=== PATIENT | male | born 1935 | race Caucasian/White ===

== ENCOUNTER → 2018-01-07 | Outpatient (CLI) | payer MEDICARE ==
[~2018-01-07] MED LIST: HYDR200T72 PO; OMEP40CA3 PO
== END | disposition home or self-care (01) ==
LOC: RAD 09:41
PROVIDERS: ATTEND Internal Medicine Gastroenterology
DX: R13.14 Dysphagia, pharyngoesophageal phase (principal)
CPT/HCPCS: 74230; 92611; G8996; G8997

== ENCOUNTER 2018-08-11 04:51 | Observation (INO) | payer MEDICARE ==
[~2018-08-11] VITALS: Ht 182.9 cm; Wt 84.4 kg
[2018-08-11] MEDS ORDERED: KETOROLAC 30 MG/1 ML ONE (05:25)
[2018-08-11] MEDS ORDERED: ONDANSETRON 2MG/ML, 2ML ONE ×2 (05:25→16:53)
[2018-08-11] MEDS ORDERED: MORPHINE SULFATE 4 MG/ML, 1ML ONE ×2 (05:26→06:12)
[2018-08-11 05:28] LABS: BASOPHILS # (AUTO) 0.02 x10^3/uL (0-0.1); BASOPHILS % (AUTO) 0 % (0-1); EOSINOPHILS % (AUTO) 2 % (1-7); LYMPHOCYTES # (AUTO) 0.91 x10^3/uL (1-3.4); LYMPHOCYTES % (AUTO) 15 % (22-44); MD NO; MEAN CORPUSCULAR HEMOGLOBIN 30.4 pg (27.5-34.5); MEAN CORPUSCULAR HGB CONC 33.1 g/dL (33.2-36.2); MEAN CORPUSCULAR VOLUME 91.7 fL (81-97); MEAN PLATELET VOLUME 7.6 fL (7.4-10.4); MONOCYTES % (AUTO) 10 % (2-9); NEUTROPHILS # (AUTO) 4.34 x10^3/uL (1.8-6.8); NEUTROPHILS % (AUTO) 73 % (42-75); PLATELET COUNT 276 x10^3/uL (130-400); RED BLOOD COUNT 5.49 x10^6/uL (4.38-5.82); RED CELL DISTRIBUTION WIDTH 15.1 % (9.4-14.8)
[2018-08-11 05:30] LABS: MICROSCOPIC AUTO
[2018-08-11] MEDS ORDERED: KETOROLAC 30 MG/1 ML IVPush ONE (05:30)
[2018-08-11] MEDS ORDERED: ONDANSETRON 2MG/ML, 2ML IVPush ONE (05:30)
[2018-08-11 05:34] LABS: CULTURE INDICATED? YES
[2018-08-11] MEDS: MORPHINE SULFATE 4 MG/ML, 1ML IVPush PRN ×2 (05:35→06:16)
[2018-08-11 05:40] LABS: ALBUMIN 3.7 g/dL (3.4-5.0); ANION GAP 7 mmol/L (5-15); CALCIUM 8.7 mg/dL (8.5-10.1); CHLORIDE 109 mmol/L (98-107)
[2018-08-11 05:43] LABS: ALANINE AMINOTRANSFERASE 23 U/L (12-78); ALKALINE PHOSPHATASE 59 U/L (45-117); BILIRUBIN,TOTAL 0.9 mg/dL (0.2-1.0); CREATININE 1.26 mg/dL (0.7-1.3); TOTAL PROTEIN 6.4 g/dL (6.4-8.2)
[2018-08-11] MEDS ORDERED: CHOL400C PO (06:17)
[2018-08-11] MEDS ORDERED: B12 IM (06:17)
--- NOTE | 2018-08-11 07:13 | NUR ---
PT REPORTS THAT HIS PAIN IS "MOSTLY GONE" AND HE "FEELS JUST FINE". PT ALERT AND CALM. FELICIANO AT BEDSIDE. PT AND SAY THAT HE IS "VERY HEALTHY, PLAYS SPORTS, AND IS ACTIVE AND INDEPENDENT" VSS. ONLY HX IS KIDNEY STONES, PARTIAL PARATHYROID GLAND REMOVAL, AND COLON CA WITH BOWEL RESECTION IN 1982. PT DENIES ANY NEEDS AT THIS TIME. NO ACUTE SIGNS OF DISTRESS. SYSTOLIC BLOOD PRESSURE HAS DECREASED FROM THE 180'S TO 150'S - WILL MONITOR CLOSELY.
[2018-08-11] MEDS ORDERED: OXYcodone/APAP 5/325MG TABLET PO ONE (07:30)
[2018-08-11] MEDS ORDERED: OXYcodone/APAP 5/325MG TABLET ONE (07:43)
--- NOTE | 2018-08-11 07:49 | NUR ---
PT REPORTED THAT HIS PAIN IS COMING BACK AND SHE STATES "HE IS IN QUITE A LOT OF PAIN". PT REPORTS HIS PAIN IS AT "ABOUT A 5". PERCOCET GIVEN, WILL CLOSELY MONITOR OXYGEN SATURATION. VSS.
--- NOTE | 2018-08-11 08:30 | NUR ---
PT WAS DESATING TO APPROX 88% ON ROOM AIR, I PUT OXYGEN BACK ON PT AT 1 LITER. WILL MONITOR CLOSELY AND REMOVE OXYGEN WHEN ABLE.
--- NOTE | 2018-08-11 08:39 | NUR ---
PT OXYGEN SAT IS HOLDING IN THE MID 90'S. REPORTS THAT OX SAT HAS NOT GONE BELOW 92 SINCE THE OXYGEN WAS STARTED AT 1 LITER APPOX 15 MINUTES AGO. I TURNED DOWN THE OXYGEN, PT IS CURRENTLY ON 0.5 L. PT APPEARS CALM.
--- NOTE | 2018-08-11 09:12 | NUR ---
PT OX SAT IS STABLE IN THE MID 90'S, I REMOVED THE OXYGEN AND AM MONITORING. IS LEAVING NOW AND WILL RETURN LATER WITH PT HEARING AIDS. VSS. PT STATES, "I HAVE ABSOLUTELY NO PAIN".
--- NOTE | 2018-08-11 09:22 | NUR ---
PT INSTRUCTED NOT TO EAT OR DRINK ANYTHING. PT VERBALIZED UNDERSTANDING.
[2018-08-11] MEDS ORDERED: SODIUM CHLORIDE 0.9% 1,000 ML IV ONE (09:30)
--- NOTE | 2018-08-11 09:37 | NUR ---
TASK RN: VS UPDATED IN CHART, PATIENT SITTING IN GURNEY, WATCHING TV, NADN. AWAITING BED ASSIGNMENT.
--- NOTE | 2018-08-11 10:02 | NUR ---
TASK RN: PATIENT 88% RA, SUPPLEMENTAL O2 PLACED ON PATIENT, NOW 94% 2 L NC. A+OX4, NADN.
--- NOTE | 2018-08-11 10:20 | NUR ---
PT DENIES PAIN, NO ACUTE SIGNS OF DISTRESS.
--- NOTE | 2018-08-11 10:32 | NUR ---
MED REC NEEDS SOME ADDITIONAL INFO THAT PT CAN'T PROVIDE, WILL ASK WHEN SHE RETURNS. MD AWARE. MD AT BEDSIDE PERFORMING ASSESSMENT.
--- NOTE | 2018-08-11 11:15 | NUR ---
PT MOVED TO HOSPITAL BED. PT AND PTS UPDATED ON POC. WILL TRANSPORT PT TO HOSPITAL ROOM WHEN AVAILABLE. UNDERSTANDING VERBALIZED. IV INFUSING WITHOUT REDNESS/SWELLING. NO NEEDS EXPRESSED AT THIS TIME. CONT TO MONITOR.
[2018-08-11] MEDS ORDERED: ONDANSETRON ODT 4 MG PO PRN (12:30)
[2018-08-11] MEDS ORDERED: ONDANSETRON 2MG/ML, 2ML IVPush PRN (12:30)
[2018-08-11] MEDS ORDERED: KETOROLAC 30 MG/1 ML IV PRN (12:30)
[2018-08-11] MEDS ORDERED: CEFTRIAXONE PMX 1GM/50ML 50 ML IV SCH (12:30)
--- NOTE | 2018-08-11 13:11 | NUR ---
REPORT CALLED TO ESTEPHANIA FARLEY, POC DISCUSSED.
[2018-08-11 14:04] VITALS: BP 153/71
[2018-08-11] MEDS ORDERED: FENTANYL PF 100 MCG/2ML ONE (16:45)
[2018-08-11] MEDS ORDERED: MIDAZOLAM 1 MG/ML, 2ML ONE (16:45)
[2018-08-11] MEDS ORDERED: SUCCINYLCHOLINE 20 MG/ML, 10ML ONE (16:53)
[2018-08-11] MEDS ORDERED: GLYCOPYRROLATE 0.2MG/1ML, 5ML ONE (16:53)
[2018-08-11] MEDS ORDERED: CEFAZOLIN 1,000 MG ONE (16:53)
[2018-08-11] MEDS ORDERED: LIDOCAINE-MPF 2% ,5ML ONE (16:53)
[2018-08-11] MEDS ORDERED: PROPOFOL 10 MG/ML, 20ML ONE (16:53)
[2018-08-11] MEDS ORDERED: LABETALOL 5MG/ML, 20ML IV PRN (17:30)
[2018-08-11] MEDS ORDERED: LORazepam 2 MG/ML, 1ML IVPush PRN (17:30)
[2018-08-11] MEDS ORDERED: ONDANSETRON 2MG/ML, 2ML IV PRN (17:30)
[2018-08-11] MEDS ORDERED: HYDROmorphone 2 MG/ML, 1ML IVPush PRN (17:30)
[2018-08-11] MEDS ORDERED: OXYcodone 5 MG/5 ML ORAL.SOL UDC PO PRN (17:30)
[2018-08-11] MEDS ORDERED: METOPROLOL 1 MG/ML, 5ML IV PRN (17:30)
[2018-08-11] MEDS ORDERED: FENTANYL PF 100 MCG/2ML IV PRN (17:30)
[2018-08-11] MEDS ORDERED: hydrALAzine 20 MG/ML, 1ML IV PRN (17:30)
[2018-08-11 19:31] VITALS: BP 158/75
[2018-08-11 20:53] VITALS: BP 133/71
[2018-08-12 00:15] VITALS: BP 117/62
[2018-08-12 03:53] VITALS: BP 107/52
[2018-08-12 06:08] LABS: ANION GAP 6 mmol/L (5-15); CALCIUM 7.9 mg/dL (8.5-10.1); CHLORIDE 109 mmol/L (98-107); CREATININE 1.26 mg/dL (0.7-1.3)
[2018-08-12 06:16] LABS: BASOPHILS # (AUTO) 0.01 x10^3/uL (0-0.1); BASOPHILS % (AUTO) 0 % (0-1); EOSINOPHILS # (AUTO) 0.04 x10^3/uL (0-0.4); EOSINOPHILS % (AUTO) 1 % (1-7); LYMPHOCYTES # (AUTO) 0.59 x10^3/uL (1-3.4); LYMPHOCYTES % (AUTO) 8 % (22-44); MD NO; MEAN CORPUSCULAR HEMOGLOBIN 29.9 pg (27.5-34.5); MEAN CORPUSCULAR HGB CONC 32.8 g/dL (33.2-36.2); MEAN PLATELET VOLUME 7.9 fL (7.4-10.4); MONOCYTES % (AUTO) 8 % (2-9); NEUTROPHILS # (AUTO) 5.96 x10^3/uL (1.8-6.8); NEUTROPHILS % (AUTO) 83 % (42-75); PLATELET COUNT 212 x10^3/uL (130-400); RED BLOOD COUNT 4.91 x10^6/uL (4.38-5.82); RED CELL DISTRIBUTION WIDTH 14.9 % (9.4-14.8)
[2018-08-12 06:55] VITALS: BP 102/58
[2018-08-12] MEDS ORDERED: ACETAMINOPHEN 325 MG TABLET PO PRN (07:30)
[2018-08-12] MEDS ORDERED: OXYBUTYNIN CHLORIDE 5 MG TABLET PO PRN (09:00)
[2018-08-12] MEDS ORDERED: PHENAZOPYRIDINE 200 MG TABLET PO PRN (09:00)
[2018-08-12] MEDS ORDERED: PHEN-583 PO (11:42)
[2018-08-12] MEDS ORDERED: OXYB5TAB7 PO (11:42)
== END 2018-08-12 13:10 | disposition home or self-care (01) ==
LOC: ED 06:28 → INTOOBSV 08:03 → EDIP 08:03 → 4NOR 13:36 → DCLOUNGE 08-12 12:57
PROVIDERS: ADMIT Internal Medicine; ATTEND Internal Medicine
DX: N13.2 Hydronephrosis with renal and ureteral calculous obstruction (principal); E55.9 Vitamin D deficiency, unspecified; R09.02 Hypoxemia; R31.9 Hematuria, unspecified; N39.0 Urinary tract infection, site not specified; I10 Essential (primary) hypertension; Z87.891 Personal history of nicotine dependence; Z85.038 Personal history of other malignant neoplasm of large intestine; Z87.442 Personal history of urinary calculi; Z88.0 Allergy status to penicillin; Z88.8 Allergy status to other drugs, medicaments and biological substances
CPT/HCPCS: 36415; 52356; 74018; 74176; 76000; 80048; 80053; 81001; 82360; 83690; 85025; 87086; 88300; 93005; 96374; 96375; 96376; 99284; C1758; C2617; G0378; J0330; J0690; J1885; J2250; J2270; J2405; J2704; J3010; J3490; J7030

== ENCOUNTER → 2018-08-24 | Outpatient (CLI) | payer MEDICARE ==
[~2018-08-24] MED LIST changes: +B12 IM; +CHOL400C PO; +OXYB5TAB7 PO; +PHEN-583 PO
== END | disposition home or self-care (01) ==
LOC: CFH 10:23
PROVIDERS: ATTEND Internal Medicine Cardiovascular Disease
DX: I08.3 Combined rheumatic disorders of mitral, aortic and tricuspid valves (principal)
CPT/HCPCS: 93306

== ENCOUNTER 2018-09-28 08:44 | Outpatient (CLI) | payer MEDICARE | END 2018-09-28 23:59 | disposition home or self-care (01) | LOC: CFH 08:44 | PROVIDERS: ATTEND Student in an Organized Health Care Education/Training Program | DX: N21.0 Calculus in bladder (principal); N20.9 Urinary calculus, unspecified; I87.8 Other specified disorders of veins; N40.0 Benign prostatic hyperplasia without lower urinary tract symptoms; N28.1 Cyst of kidney, acquired | CPT/HCPCS: 74018; 76770 ==

== ENCOUNTER 2019-03-10 11:11 | Outpatient (CLI) | payer MEDICARE ==
[~2019-03-10 11:11] MED LIST changes: +OXYB5TAB10 PO; -OXYB5TAB7 PO
== END 2019-03-10 23:59 | disposition home or self-care (01) ==
LOC: CVU 11:11
PROVIDERS: ATTEND Internal Medicine Cardiovascular Disease
DX: I08.3 Combined rheumatic disorders of mitral, aortic and tricuspid valves (principal)
CPT/HCPCS: 93306

== ENCOUNTER → 2019-07-06 | Outpatient (CLI) | payer MEDICARE | END | disposition home or self-care (01) | LOC: CFH 09:38 | PROVIDERS: ATTEND Student in an Organized Health Care Education/Training Program | DX: N20.0 Calculus of kidney (principal); Z87.442 Personal history of urinary calculi | CPT/HCPCS: 74018 ==

== ENCOUNTER → 2020-03-20 | Outpatient (CLI) | payer MEDICARE | END | disposition home or self-care (01) | LOC: CVU 15:13 | PROVIDERS: ATTEND Internal Medicine Cardiovascular Disease | DX: I08.3 Combined rheumatic disorders of mitral, aortic and tricuspid valves (principal); I11.9 Hypertensive heart disease without heart failure | CPT/HCPCS: 93306; 93356 ==

== ENCOUNTER 2020-05-15 23:55 | Emergency (ER) | payer MEDICARE ==
[~2020-05-15] VITALS: Ht 182.9 cm; Wt 86.2 kg
--- NOTE | 2020-05-16 00:40 | NUR ---
patient back from imaging. steady gait to the bathroom. denies pain. will continue to monitor
[2020-05-16 00:56] LABS: BASOPHILS % (AUTO) 1 % (0-1); EOSINOPHILS % (AUTO) 2 % (1-7); LYMPHOCYTES % (AUTO) 16 % (22-44); MEAN CORPUSCULAR HGB CONC 33.5 g/dL (33.2-36.2); MEAN PLATELET VOLUME 7.5 fL (7.4-10.4); MONOCYTES % (AUTO) 14 % (2-9); NEUTROPHILS % (AUTO) 68 % (42-75); PLATELET COUNT 301 x10^3/uL (130-400); RED BLOOD COUNT 5.62 x10^6/uL (4.38-5.82); RED CELL DISTRIBUTION WIDTH 14.9 % (9.4-14.8)
[2020-05-16 00:57] LABS: MD NO
--- NOTE | 2020-05-16 01:05 | NUR ---
ua obtained and walked to lab by this RN Addendum: 05/16/20 at 0105 by LIU no stone visualized in urinal
[2020-05-16 01:06] LABS: ALBUMIN 3.6 g/dL (3.4-5.0); ANION GAP 6 mmol/L (5-15); CALCIUM 8.8 mg/dL (8.5-10.1); CHLORIDE 109 mmol/L (98-107); CREATININE 1.11 mg/dL (0.7-1.3)
[2020-05-16 01:13] LABS: MICROSCOPIC INDICATED
--- NOTE | 2020-05-16 01:52 | NUR ---
patient remains resting in bed with no complaint of pain. patient and requesting update. RN updated patient and that MD will be in to see patient when he is able to look over all results of labs and images. both patient and thankful. will continue to monitor.
[2020-05-16] MEDS ORDERED: SULFAMETH./TRIMETHOPRIM DS 800MG/160MG TABLET ONE (02:24)
[2020-05-16] MEDS ORDERED: FLUCONAZOLE 100 MG TABLET ONE (02:24)
[2020-05-16] MEDS ORDERED: SULFAMETH./TRIMETHOPRIM DS 800MG/160MG TABLET PO ONE (02:30)
[2020-05-16] MEDS ORDERED: FLUCONAZOLE 200 MG TABLET PO ONE (02:30)
--- NOTE | 2020-05-16 02:41 | NUR ---
discharge instructions reviewed with patient and at bedside. all questions answered to patient and 's satisfaction. prescription reviewed with patient and and handed directly to patient. patient asked if he "needed" to take the zofran if he had nausea. I explained to him what it was for but if he did not feel like he wanted to take it, he did not have to but it was being prescribed for n/v. patient acknowledged understanding. importance of finishing antibiotics for the whole regimen expressed to patient and . they both acknowledged instruction. I reviewed in utmost importance when to come back to the ER immediately. both and patient acknowledged education. no IV placed during this ER visit. steady gait to lobby. all personal belongings with patient on departure
[2020-05-16 02:44] VITALS: BP 169/90
== END 2020-05-16 02:46 | disposition home or self-care (01) ==
LOC: ED 05-16 00:25
DX: N30.01 Acute cystitis with hematuria (principal); N20.1 Calculus of ureter; I10 Essential (primary) hypertension; R10.9 Unspecified abdominal pain; M54.5 Low back pain
CPT/HCPCS: 36415; 74176; 80048; 81001; 82040; 85025; 87077; 87086; 87186; 99284

== ENCOUNTER 2020-11-13 13:52 | Outpatient (CLI) | payer MEDICARE ==
[2020-11-13] MEDS ORDERED: OMNIPAQUE 350 MG/ML, 100ML BOTTLE ONE (14:42)
== END 2020-11-13 23:59 | disposition home or self-care (01) ==
LOC: CFH 13:52
PROVIDERS: ATTEND Psychiatry & Neurology Neurology
DX: I65.23 Occlusion and stenosis of bilateral carotid arteries (principal); I63.432 Cerebral infarction due to embolism of left posterior cerebral artery
CPT/HCPCS: 70496; 70498; Q9967